=== PATIENT | female | born 1990 | race Caucasian/White ===

== ENCOUNTER 2019-08-24 12:54 | Emergency (ER) | payer SELFPAY ==
[~2019-08-24] VITALS: Ht 165.1 cm; Wt 69.7 kg
[2019-08-24 12:58] VITALS: Ht 165.1 cm; Wt 69.7 kg
[2019-08-24 13:55] LABS: APPEARANCE CLEAR (CLEAR); BILIRUBIN NEGATIVE (NEGATIVE); COLOR YELLOW (YELLOW); GLUCOSE NEGATIVE (NEGATIVE); KETONE NEGATIVE (NEGATIVE); NITRITE NEGATIVE (NEGATIVE); PROTEIN NEGATIVE (NEGATIVE); SPECIFIC GRAVITY 1.015 (1.005-1.020); UROBILINOGEN NORMAL (NORMAL)
[2019-08-24] MEDS ORDERED: CLEOCIN HCL150 MG PO (14:10)
[2019-08-24] MEDS ORDERED: PEPCID AC20 MG PO (14:11)
[2019-08-24] MEDS ORDERED: ULTRAM50 MG PO (14:11)
[2019-08-24] MEDS ORDERED: PREDNISONE20 MG PO (14:11)
[2019-08-24 14:19] LABS: UDS - AMPHET NEGATIVE QUAL (NEGATIVE); UDS - BARB NEGATIVE QUAL (NEGATIVE); UDS - BENZO NEGATIVE QUAL (NEGATIVE); UDS - COCAINE NEGATIVE QUAL (NEGATIVE); UDS - OPIATE NEGATIVE QUAL (NEGATIVE); UDS - PCP NEGATIVE QUAL (NEGATIVE); UDS - THC NEGATIVE QUAL (NEGATIVE)
[2019-08-24 14:35] LABS: HCG URINE NEGATIVE (NEGATIVE)
[2019-08-24 14:41] VITALS: BP 120/60
== END 2019-08-24 14:42 | disposition home or self-care (01) ==
LOC: D.ER 12:54
PROVIDERS: Emergency Medicine
DX: R21 Rash and other nonspecific skin eruption (principal); K04.7 Periapical abscess without sinus

== ENCOUNTER 2019-08-26 16:04 | Emergency (ER) | payer SELFPAY ==
[~2019-08-26] VITALS: Ht 165.1 cm; Wt 68.2 kg
[~2019-08-26 16:04] MED LIST: CLEOCIN HCL150 MG PO; PEPCID AC20 MG PO; PREDNISONE20 MG PO; ULTRAM50 MG PO
[2019-08-26 16:09] VITALS: Ht 165.1 cm; Wt 68.2 kg
[2019-08-26 16:37] LABS: APPEARANCE CLEAR (CLEAR); BILIRUBIN NEGATIVE (NEGATIVE); COLOR YELLOW (YELLOW); GLUCOSE NEGATIVE (NEGATIVE); KETONE NEGATIVE (NEGATIVE); NITRITE NEGATIVE (NEGATIVE); PROTEIN TRACE mg/dL (NEGATIVE); SPECIFIC GRAVITY 1.025 (1.005-1.020); UROBILINOGEN NORMAL (NORMAL)
[2019-08-26 17:21] LABS: HCG URINE NEGATIVE (NEGATIVE)
[2019-08-26 17:25] LABS: BASOPHILS 0.4 % (0-2); EOSINOPHILS 2.1 % (0-7); HEMATOCRIT 37.2 % (36.0-48.0); HEMOGLOBIN 11.9 g/dL (12-16); LYMPHOCYTES 37.6 % (15-50); MCH 28.5 pg (26.0-34.0); MCV 89.2 fL (80.0-100.0); MEAN PLATELET VOLUME 10.2 fL (7.4-10.4); MONOCYTES 5.6 % (2-11); NEUTROPHILS 54.3 % (40-80); PLATELET COUNT 231 10x3/uL (130-400); RBC 4.17 10x6/uL (4.00-5.40); RDW 13.4 % (11.5-14.5)
[2019-08-26 17:35] LABS: CALC OSMOLALITY 289 mosm/kg (275-300); CALCIUM 7.9 mg/dL (8.5-10.1); CARBON DIOXIDE 23.7 mmol/L (21.0-32.0); CHLORIDE - SERUM 109 mmol/L (98-107); CREATININE - SERUM 0.9 mg/dL (0.6-1.3); GLUCOSE 107 mg/dL (74-106); POTASSIUM - SERUM 3.5 mmol/L (3.5-5.1); SODIUM 144 mmol/L (136-145); UREA NITROGEN 20 mg/dL (7-18); eGFR NON AFRICAN AMERICAN 78 mL/min (90-120)
[2019-08-26 17:41] LABS: ALBUMIN 3.2 g/dL (3.4-5.0); ALKALINE PHOSPHATASE 53 U/L (46-116); ALT (SGPT) 23 U/L (10-68); AMYLASE - SERUM 43 U/L (25-115); BILIRUBIN - TOTAL 0.11 mg/dL (0.2-1.3); LIPASE 154 U/L (73-393)
[2019-08-26] MEDS ORDERED: BENTYL 20 MG TA20 MG PO (19:07)
[2019-08-26] MEDS ORDERED: MIRALAX17 GM PO (19:07)
[2019-08-26 19:34] VITALS: BP 97/58
== END 2019-08-26 19:34 | disposition home or self-care (01) ==
LOC: D.ER 16:04
PROVIDERS: Family Medicine
DX: R10.13 Epigastric pain (principal); R14.0 Abdominal distension (gaseous); K59.00 Constipation, unspecified; F17.210 Nicotine dependence, cigarettes, uncomplicated